=== PATIENT | male | born 1965 | race American Indian/Alaskan Native ===

== ENCOUNTER 2017-06-02 08:32 | Outpatient (CLI) | payer BC ==
--- NOTE | 2017-06-05 07:41 | Vascular Lab Report ---
RENAL ARTERY DUPLEX EXAM: REASON FOR EXAM: Renal artery stenosis. NOTE: Visualization is technically hypertension. COMMENTS ON THE AORTA: The aorta is patent. Elevated flow velocities are observed. No aneurysmal dilatation is noted. Mild atherosclerotic change is identified. The celiac artery is patent with normal flow velocity. The superior mesenteric artery is patent with elevated flow velocities. COMMENTS ON THE RIGHT KIDNEY: The kidney measures 10.4 centimeters in greatest dimension. No obvious parenchymal abnormalities are noted. The renal artery is patent. Maximum systolic velocity is 103 cm/sec. This finding is consistent with less than 60% diameter reduction. Overall findings are consistent with less than 60% diameter reduction in the renal artery. COMMENTS ON THE LEFT KIDNEY: The kidney measures 9.4 centimeters in greatest dimension. No obvious parenchymal abnormalities are noted. The renal artery is patent. Maximum systolic velocity is 120 cm/sec. This finding is consistent with less than 60% diameter reduction. Overall findings are consistent with less than 60% diameter reduction in the renal artery. IMPRESSION: RIGHT KIDNEY: Less than 60% diameter reduction in the renal artery. LEFT KIDNEY: Less than 60% diameter reduction in the renal artery. Elevated velocity noted in the superior mesenteric artery. Clinical correlation recommended.
== END 2017-06-02 08:33 | disposition home or self-care (01) ==
LOC: VAS 08:32
PROVIDERS: ATTEND Internal Medicine Nephrology
DX: I77.89 Other specified disorders of arteries and arterioles (principal); I10 Essential (primary) hypertension
CPT/HCPCS: 93975